=== PATIENT | male | born 1960 | race Caucasian/White ===

== ENCOUNTER 2018-08-06 13:57 | Emergency (ER) | payer SELFPAY ==
[~2018-08-06] VITALS: Ht 175.3 cm; Wt 129.3 kg
--- OUTSIDE RECORDS SUMMARY | 2018-08-06 14:01 | XMS REPORT | Continuity of Care Document ---
Author Author [employer] Address Unknown Phone Unavailable Care Team Providers Care Senior Publications Specialist Name Role Phone [employer] Information [employer] Unavailable Unavailable Problems Problem Status Onset Date Classification Date Reported Comments Source Hordeolum externum of left upper eyelid 06/17/2018 06/19/2018 [facility] Cellulitis of left upper eyelid 06/17/2018 06/19/2018 [facility] LEFT EYE PAIN/ SINUS PAIN Active 06/17/2018 [facility] Cutaneous abscess of neck 05/17/2017 08/15/2017 [facility] Cellulitis 05/09/2017 08/15/2017 [facility] Hyperglycemia 05/09/2017 08/15/2017 [facility] Abscess 05/09/2017 08/15/2017 [facility] ABSCESS Active 05/06/2017 [facility] Cellulitis of neck 08/15/2017 [facility] Type 2 diabetes mellitus with hyperglycemia 08/15/2017 [facility] Underdosing of insulin and oral hypoglycemic [antidiabetic] drugs, initial encounter 08/15/2017 [facility] Patient's intentional underdosing of medication regimen for other reason 08/15/2017 [facility] intermediate teacher use of oral hypoglycemic drugs 08/15/2017 [facility] Diabetes Resolved Problem 06/19/2018 [facility] Medications Medication Details Route Status Patient Instructions Ordering Provider Order Date Source Cephalexin 500 MG Oral Capsule [Keflex] 500 mg=1 cap, PO, TID, X 7 day, # 21 cap, 0 Refill(s) Active 06/17/2018 [facility] Sulfamethoxazole 800 MG / Trimethoprim 160 MG Oral Tablet [Bactrim] 1 tab, PO, BID, X 7 day, # 14 tab, 0 Refill(s) Active 06/17/2018 [facility] Fluconazole 150 MG Oral Tablet [Diflucan] 150 mg=1 tab, PO, ONCE, # 1 tab, 0 Refill(s) Active 05/09/2017 [facility] Cephalexin 500 MG Oral Capsule [Keflex] 500 mg=1 cap, PO, QID, X 7 day, # 28 cap, 0 Refill(s) No Longer Active 05/09/2017 [facility] Sulfamethoxazole 800 MG / Trimethoprim 160 MG Oral Tablet [Bactrim] 1 tab, PO, BID, X 7 day, # 14 tab, 0 Refill(s) No Longer Active 05/09/2017 [facility] Motrin 800 mg, Route: PO, Drug form: TAB, ONCE, Dosing Weight 136.364, kg, Priority: STAT, Start date: 05/09/17 16:41:00 CDT, Stop date: 05/09/17 16:41:00 CDT Inactive 05/09/2017 [facility] Lidocaine Hydrochloride 10 MG/ML Injectable Solution 1 mL, Route: SUB-Q, Drug Form: INJ, Dosing Weight 136.364, kg, ONCE, STAT, Start date: 05/09/17 15:09:00 CDT, Stop date: 05/09/17 15:09:00 CDTNotes: Preservative free. (Same as: Xylocaine MPF) Inactive 05/09/2017 [facility] NS (Bolus) IV 1,000 mL, 1,000 ml/hr, Infuse Over: 1 hr, Route: IV, 1,000, Drug form: INJ, ONCE, Priority: STAT, Dosing Weight 136.364 kg, Start date: 05/09/17 14:48:00 CDT, Stop date: 05/09/17 14:48:00 CDT Inactive 05/09/2017 [facility] Allergies, Adverse Reactions, Alerts Substance Category Reaction Severity Reaction type Status Date Reported Comments Source Levaquin Assertion Drug allergy Active [facility] Immunizations No Data Provided for This Section Results Order Name Results Value Reference Range Date Interpretation Comments Source Culture: Urine No Growth 05/09/2017 [facility] URINE AND STOOL UA Bili Negative *NA* (05/09/17 4:33 PM) Negative 05/09/2017 [facility] URINE AND STOOL UA Nitrite Negative (05/09/17 4:33 PM) Negative 05/09/2017 [facility] URINE AND STOOL UA Urobilinogen 0.2 0.1 - 1.0 05/09/2017 [facility] URINE AND STOOL UA Blood Negative (05/09/17 4:33 PM) Negative 05/09/2017 [facility] URINE AND STOOL UA Leuk Est Negative (05/09/17 4:33 PM) Negative 05/09/2017 [facility] URINE AND STOOL UA Color Yellow *NA* (05/09/17 4:33 PM) Yellow 05/09/2017 [facility] URINE AND STOOL UA Turbidity Clear (05/09/17 4:33 PM) Clear 05/09/2017 [facility] URINE AND STOOL UA Spec Grav 1.010 <=1.030 05/09/2017 [facility] URINE AND STOOL UA Protein Negative mg/dL Negative mg/dL 05/09/2017 [facility] URINE AND STOOL UA Glucose >=1000 mg/dL Negative mg/dL 05/09/2017 [facility] URINE AND STOOL UA pH 6.0 5.0 - 8.0 05/09/2017 [facility] URINE AND STOOL UA Ketones Negative mg/dL Negative mg/dL 05/09/2017 [facility] URINE AND STOOL UA Trichomonas Occasional /HPF None Seen /HPF 05/09/2017 [facility] URINE AND STOOL UA Bacteria Occasional /HPF None Seen /HPF 05/09/2017 [facility] URINE AND STOOL UA RBC 0-2 /HPF 0 - 2 05/09/2017 [facility] URINE AND STOOL UA WBC 21-50 /HPF None Seen /HPF 05/09/2017 [facility] URINE AND STOOL UA Sq Epi Occasional /LPF Few /LPF 05/09/2017 [facility] CHEM PANEL ALT 26 0 - 65 05/09/2017 [facility] CHEM PANEL A/G Ratio 0.6 0.7 - 1.6 05/09/2017 [facility] CHEM PANEL Globulin 5.1 2.7 - 4.2 05/09/2017 [facility] CHEM PANEL Total Protein 8.4 6.4 - 8.4 05/09/2017 [facility] CHEM PANEL eGFR 62 05/09/2017 Result Comment: The eGFR is calculated using the CKD-EPI formula. In most young, healthy individuals the eGFR will be >90 mL/min/1.73m2. The eGFR declines with age. An eGFR of 60-89 may be normal in some populations, particularly the elderly, for whom the CKD-EPI formula has not been extensively validated. Use of the eGFR is not recommended in the following populations:

Individuals with unstable creatinine concentrations, including patients and those with serious co-morbid conditions.

Patients with extremes in muscle mass or diet.

The data above are obtained from the National Kidney Disease Education Program (NKDEP) which additionally recommends that when the eGFR is used in patients with extremes of body mass index for purposes of drug dosing, the eGFR should be multiplied by the estimated BMI. [facility] CHEM PANEL Bili Total 0.3 0.2 - 1.3 05/09/2017 [facility] CHEM PANEL Alk Phos 121 39 - 136 05/09/2017 [facility] CHEM PANEL AST 18 0 - 37 05/09/2017 [facility] CHEM PANEL Creatinine Lvl 1.29 0.50 - 1.40 05/09/2017 [facility] CHEM PANEL BUN 19 7 - 22 05/09/2017 [facility] CHEM PANEL CO2 28 24 - 32 05/09/2017 [facility] CHEM PANEL Chloride Lvl 99 95 - 109 05/09/2017 [facility] CHEM PANEL Potassium Lvl 4.1 3.5 - 5.1 05/09/2017 [facility] CHEM PANEL Sodium Lvl 134 135 - 145 05/09/2017 [facility] CHEM PANEL B/C Ratio 15 6 - 25 05/09/2017 [facility] CHEM PANEL Albumin Lvl 3.3 3.5 - 5.0 05/09/2017 [facility] CHEM PANEL Calcium Lvl 8.8 8.5 - 10.5 05/09/2017 [facility] CHEM PANEL AGAP 11.1 10.0 - 20.0 05/09/2017 [facility] CHEM PANEL Glucose Lvl 331 70 - 99 05/09/2017 [facility] HEMATOLOGY Hct 47.9 42.0 - 54.0 05/09/2017 [facility] HEMATOLOGY WBC 14.2 3.7 - 10.4 05/09/2017 [facility] RBC 5.29 4.70 - 6.10 05/09/2017 [facility] Hgb 16.5 14.0 - 18.0 05/09/2017 [facility] HEMATOLOGY MPV 7.3 7.4 - 10.4 05/09/2017 [facility] HEMATOLOGY RDW 13.1 11.5 - 14.5 05/09/2017 [facility] HEMATOLOGY Platelet 418 133 - 450 05/09/2017 [facility] MCH 31.3 27.0 - 31.0 05/09/2017 [facility] MCHC 34.5 32.0 - 36.0 05/09/2017 [facility] MCV 90.6 80.0 - 94.0 05/09/2017 [facility] HEMATOLOGY Eosinophils 1.7 0.0 - 4.0 05/09/2017 [facility] Monocytes # 0.6 0.0 - 0.8 05/09/2017 [facility] HEMATOLOGY Lymphocytes # 3.5 1.0 - 5.5 05/09/2017 [facility] HEMATOLOGY Segs-Bands # 9.9 1.5 - 8.1 05/09/2017 [facility] HEMATOLOGY Basophils 0.1 0.0 - 1.0 05/09/2017 [facility] HEMATOLOGY Eosinophils # 0.2 0.0 - 0.5 05/09/2017 [facility] HEMATOLOGY Monocytes 4.5 2.0 - 12.0 05/09/2017 [facility] HEMATOLOGY Lymphocytes 25.0 20.0 - 40.0 05/09/2017 [facility] HEMATOLOGY Segs 68.7 45.0 - 75.0 05/09/2017 [facility] Pathology Reports No Data Provided for This Section Diagnostic Reports No Data Provided for This Section Consultation Notes No Data Provided for This Section Discharge Summaries No Data Provided for This Section History and Physicals No Data Provided for This Section Vital Signs Vital Sign Value Date Comments Source Heart Rate 89 06/17/2018 [facility] Weight 136.364 06/17/2018 [facility] Height 175.26 cm 06/17/2018 [facility] BMI Calculated 44.4 06/17/2018 [facility] Temperature Oral (F) 97.9 F 06/17/2018 [facility] Respitory Rate 18 06/17/2018 [facility] Heart Rate 107 06/17/2018 [facility] Systolic (mm Hg) 137 06/17/2018 [facility] Diastolic (mm Hg) 83 06/17/2018 [facility] Systolic (mm Hg) 142 05/09/2017 [facility] Diastolic (mm Hg) 84 05/09/2017 [facility] Temperature Oral (F) 98.4 F 05/09/2017 [facility] Heart Rate 88 05/09/2017 [facility] Respitory Rate 18 05/09/2017 [facility] Height 175.26 cm 05/09/2017 [facility] Respitory Rate 18 05/09/2017 [facility] Heart Rate 90 05/09/2017 [facility] Temperature Oral (F) 98.3 F 05/09/2017 [facility] Weight 136.364 05/09/2017 [facility] BMI Calculated 44.4 05/09/2017 [facility] Systolic (mm Hg) 163 05/09/2017 [facility] Diastolic (mm Hg) 99 05/09/2017 [facility] Encounters Location Location Details Encounter Type Encounter Number Reason For Visit Attending Provider ADM Date DC Date Status Source [facility] Emergency [id number] Guillermo Barbara 05/09/2017 05/09/2017 [facility] Emergency [id number] Allan Whitney IV 06/17/2018 06/17/2018 JOSE Christian Procedures Procedure Code Date Perfomer Comments Source Cholecystectomy [id number] [place] Assessment and Plan No Data Provided for This Section Plan of Care No Data Provided for This Section Social History Social History Date Source Social History TypeResponse Smoking Status Never smoker; Exposure to Tobacco Smoke None; Cigarette Smoking Last 365 Days No; Reg Smoking Cessation Counseling No entered on: 06/17/18 06/17/2018 [facility] Family History No Data Provided for This Section Advance Directives No Data Provided for This Section Functional Status No Data Provided for This Section
--- OUTSIDE RECORDS SUMMARY | 2018-08-06 14:01 | XMS REPORT ---
Author Author [facility] Address Unknown Phone Unavailable Care Team Providers Care Embedded Software Programmer Name Role Phone Unavailable Unavailable Problems This patient has no known problems. Allergies, Adverse Reactions, Alerts This patient has no known allergies or adverse reactions. Medications This patient has no known medications. Encounters Start Date/Time End Date/Time Encounter Type Admission Type Attending Clinicians Care Facility Care Department Encounter ID 2018-06-17 09:36:00 2018-06-17 09:36:00 Emergency [id number]
--- OUTSIDE RECORDS SUMMARY | 2018-08-06 14:01 | XMS REPORT | Summary of Care ---
Author Author [facility] Organization [facility] Address Unknown Phone Unavailable Encounter JABARI Storm(ANIBAL) [id number] Date(s): 06/17/18 - 06/17/18 [facility] [address], [place], [place] [address]- [phone] Encounter Diagnosis Hordeolum externum of left upper eyelid (Discharge Diagnosis) - 06/17/18 Cellulitis of left upper eyelid (Discharge Diagnosis) - 06/17/18 Discharge Disposition: Home or Self Care Attending Physician: Allan Hills DO Vital Signs Most recent to 1 2 oldest [Reference Range]: Height 175.26 cm (06/17/18 9:42 AM) Temperature Oral 97.9 DegF [96.4-99.1 DegF] (06/17/18 9:42 AM) Blood Pressure 137/83 mmHg [90-140/60-90 mmHg] (06/17/18 9:42 AM) Respiratory Rate 18 BRMIN [14-20 BRMIN] (06/17/18 9:42 AM) Peripheral Pulse 89 bpm 107 bpm Rate [60-100 bpm] (06/17/18 10:13 AM) *HI* (06/17/18 9:42 AM) Weight 136.364 kg (06/17/18 9:42 AM) Body Mass Index 44.4 m2 (06/17/18 9:42 AM) Problem List Condition Effective Dates Status Health Status Informant Diabetes(Confirmed) Resolved Allergies, Adverse Reactions, Alerts Substance Reaction Severity Status Levaquin Active Medications Bactrim DS 800 mg- 160 mg oral tablet 1 tab, PO, BID, X 7 day, # 14 tab, 0 Refill(s) Start Date: 06/17/18 Stop Date: 06/24/18 Status: Ordered Keflex 500 mg oral capsule 500 mg=1 cap, PO, TID, X 7 day, # 21 cap, 0 Refill(s) Start Date: 06/17/18 Stop Date: 06/24/18 Status: Ordered Results No data available for this section Immunizations No data available for this section Procedures Procedure Date Related Diagnosis Body Site Status Cholecystectomy Completed Social History Social History Type Response Smoking Status Never smoker; Exposure to Tobacco Smoke None; Cigarette Smoking Last 365 Days No; Reg Smoking Cessation Counseling No entered on: 06/17/18 Assessment and Plan No data available for this section
[2018-08-06 15:43] LABS: BILIRUBIN,URINE NEGATIVE (NEGATIVE); CLARITY,URINE CLEAR (CLEAR); COLOR,URINE YELLOW (YELLOW); KETONES,URINE NEGATIVE (NEGATIVE); LEUKOCYTE ESTERASE ,URINE TRACE (NEGATIVE); NITRITE,URINE NEGATIVE (NEGATIVE); PROTEIN,URINE DIPSTICK NEGATIVE (NEGATIVE); URINE UROBILINOGEN 0.2 mg/dL (0.2 - 1)
[2018-08-06 16:04] LABS: BACTERIA,URINE RARE /HPF; EPITHELIAL CELLS,URINE FEW /LPF
[2018-08-06 16:11] LABS: BASOPHILS # (AUTO) 0.1 (0.0-0.1); BASOPHILS % 0.4 % (0.0-1.0); EOSINOPHILS # (AUTO) 0.3 (0.0-0.4); EOSINOPHILS % 1.6 % (0.0-6.0); HEMATOCRIT 44.2 % (38.2-49.6); HEMOGLOBIN 15.2 g/dL (14.0-18.0); LYMPHOCYTES # (AUTO) 4.8 (1.0-3.2); LYMPHOCYTES % 30.3 % (18.0-39.1); MEAN CORPUSCULAR HEMOGLOBIN 31.8 pg (28-32); MEAN CORPUSCULAR HGB CONC 34.4 g/dL (31-35); MEAN CORPUSCULAR VOLUME 92.5 fL (81-99); MONOCYTES # (AUTO) 1.1 (0.2-0.8); MONOCYTES % 6.7 % (4.4-11.3); NEUTROPHILS # (AUTO) 9.6 (2.1-6.9); NEUTROPHILS % 60.4 % (38.7-80.0); PLATELET COUNT 341 x10e3/uL (140-360); RED BLOOD COUNT 4.78 x10e6/uL (4.3-5.7); RED CELL DISTRIBUTION WIDTH 13.7 % (11.7-14.4)
[2018-08-06 16:21] LABS: INR 0.89; PROTHROMBIN TIME 12.5 seconds (11.9-14.5)
[2018-08-06 16:22] LABS: PARTIAL THROMBOPLASTIN TIME 31.4 seconds (23.8-35.5)
[2018-08-06 16:29] LABS: ALANINE AMINOTRANSFERASE 22 IU/L (0-55); ALBUMIN 3.5 g/dL (3.5-5.0); ALBUMIN/GLOBULIN RATIO 0.9 (0.8-2.0); ALKALINE PHOSPHATASE 68 IU/L (40-150); ANION GAP 18.4 mmol/L (8-16); BLOOD UREA NITROGEN 16 mg/dL (7-26); BUN/CREATININE RATIO 19 (6-25); CALCIUM 9.5 mg/dL (8.4-10.2); CARBON DIOXIDE 21 mmol/L (22-29); CHLORIDE 105 mmol/L (98-107); CREATINE KINASE 100 IU/L (30-200); CREATININE, SERUM 0.83 mg/dL (0.72-1.25); EST GLOMERULAR FILTRATION RATE > 60 ML/MIN (60-); GLUCOSE 130 mg/dL (74-118); POTASSIUM 4.4 mmol/L (3.5-5.1); SODIUM 140 mmol/L (136-145)
--- NOTE | 2018-08-06 16:36 | Diagnostic Imaging Report ---
EXAMINATION: CHEST 2 VIEWS INDICATION: Chest pain COMPARISON: None FINDINGS: TUBES and LINES: None. LUNGS: Lungs are well inflated. No focal consolidation or pulmonary edema. PLEURA: No pleural effusion or pneumothorax. HEART AND MEDIASTINUM: The cardiomediastinal silhouette is unremarkable. BONES AND SOFT TISSUES: No acute fracture or dislocation. Soft tissues are unremarkable. UPPER ABDOMEN: No free air under the diaphragm. IMPRESSION: No focal pneumonia or pulmonary edema. Signed by: Hermelinda Curtis MD on 08/06/2018 4:32 PM
[2018-08-06] MEDS ORDERED: CLINDAMYCIN 600MG / 50ML 50 ML IV ONE (19:30)
[2018-08-06] MEDS ORDERED: CLINDAMYCIN PHOS 600 MG/ 4 ML VIAL IM NR (19:45)
[2018-08-06 20:29] VITALS: BP 155/95
== END 2018-08-06 20:32 | disposition home or self-care (01) ==
LOC: ER 13:57
DX: R07.89 Other chest pain (principal); B37.2 Candidiasis of skin and nail; L03.112 Cellulitis of left axilla; L03.111 Cellulitis of right axilla; E11.9 Type 2 diabetes mellitus without complications; M10.9 Gout, unspecified
CPT/HCPCS: 36415; 71046; 80053; 81001; 82550; 82553; 83880; 84484; 85025; 85610; 85730; 93005; 99283

== ENCOUNTER 2018-11-19 05:36 | Emergency (ER) | payer SELFPAY ==
[~2018-11-19] VITALS: Ht 175.3 cm; Wt 136.1 kg
[2018-11-19] MEDS ORDERED: BACTRIM DS TAB1 EACH PO (06:13)
[2018-11-19 06:32] VITALS: BP 149/81
[2018-11-26] MEDS ORDERED: LOPRESSOR25 MG PO (08:16)
[2018-11-26] MEDS ORDERED: PRAVASTATIN SOD20 MG PO (08:16)
[2018-11-26] MEDS ORDERED: ASPIR 8181 MG PO (08:16)
== END 2018-11-19 06:37 | disposition home or self-care (01) ==
LOC: FSED 05:36
DX: L02.811 Cutaneous abscess of head [any part, except face] (principal); R20.2 Paresthesia of skin; I10 Essential (primary) hypertension; R73.9 Hyperglycemia, unspecified; R94.31 Abnormal electrocardiogram [ECG] [EKG]
CPT/HCPCS: 10060; 93005; 99283

== ENCOUNTER 2018-11-25 17:26 | Observation (INO) | payer SELFPAY ==
[~2018-11-25] VITALS: Ht 175.3 cm; Wt 152.1 kg
[~2018-11-25 17:26] MED LIST: BACTRIM DS TAB1 EACH PO
[2018-11-25] MEDS ORDERED: ASPIRIN 81 MG CHEW TAB PO ONE ×2 (17:30→20:00)
[2018-11-25 18:32] LABS: BASOPHILS # (AUTO) 0.1 (0.0-0.1); BASOPHILS % 0.5 % (0.0-1.0); EOSINOPHILS # (AUTO) 0.3 (0.0-0.4); EOSINOPHILS % 1.9 % (0.0-6.0); HEMATOCRIT 45.7 % (38.2-49.6); HEMOGLOBIN 15.7 g/dL (14.0-18.0); LYMPHOCYTES # (AUTO) 5.5 (1.0-3.2); LYMPHOCYTES % 36.6 % (18.0-39.1); MEAN CORPUSCULAR HEMOGLOBIN 31.8 pg (28-32); MEAN CORPUSCULAR HGB CONC 34.4 g/dL (31-35); MEAN CORPUSCULAR VOLUME 92.5 fL (81-99); MONOCYTES % 6.9 % (4.4-11.3); NEUTROPHILS % 53.3 % (38.7-80.0); PLATELET COUNT 405 x10e3/uL (140-360); RED BLOOD COUNT 4.94 x10e6/uL (4.3-5.7); RED CELL DISTRIBUTION WIDTH 13.6 % (11.7-14.4)
[2018-11-25 18:37] LABS: BILIRUBIN,URINE NEGATIVE (NEGATIVE); CLARITY,URINE CLEAR (CLEAR); COLOR,URINE YELLOW (YELLOW); KETONES,URINE NEGATIVE (NEGATIVE); LEUKOCYTE ESTERASE ,URINE SMALL (NEGATIVE); NITRITE,URINE NEGATIVE (NEGATIVE); PROTEIN,URINE DIPSTICK NEGATIVE (NEGATIVE); URINE UROBILINOGEN 0.2 mg/dL (0.2 - 1)
[2018-11-25 18:45] LABS: INR 0.81; PARTIAL THROMBOPLASTIN TIME 32.2 seconds (23.8-35.5); PROTHROMBIN TIME 11.6 seconds (11.9-14.5)
[2018-11-25 18:53] LABS: ALANINE AMINOTRANSFERASE 23 IU/L (0-55); ALBUMIN 3.4 g/dL (3.5-5.0); ALBUMIN/GLOBULIN RATIO 0.8 (0.8-2.0); ALKALINE PHOSPHATASE 78 IU/L (40-150); ANION GAP 19.3 mmol/L (8-16); BLOOD UREA NITROGEN 18 mg/dL (7-26); BUN/CREATININE RATIO 18 (6-25); CALCIUM 9.7 mg/dL (8.4-10.2); CARBON DIOXIDE 19 mmol/L (22-29); CHLORIDE 105 mmol/L (98-107); CREATINE KINASE 120 IU/L (30-200); EST GLOMERULAR FILTRATION RATE > 60 ML/MIN (60-); GLUCOSE 134 mg/dL (74-118); POTASSIUM 4.3 mmol/L (3.5-5.1); SODIUM 139 mmol/L (136-145)
[2018-11-25 18:54] LABS: BACTERIA,URINE RARE /HPF; EPITHELIAL CELLS,URINE FEW /LPF; RBC,URINE 0-5 /HPF (0-5); WBC,URINE (MAN) 0-5 /HPF (0-5)
--- NOTE | 2018-11-25 19:13 | Diagnostic Imaging Report ---
EXAMINATION: CHEST SINGLE (PORTABLE) INDICATION: Chest pain ^ERMD ORDER ^[id number] ^[id number] ^Y COMPARISON: 08/06/2018 FINDINGS: AP view TUBES and LINES: None. LUNGS: Limited by body habitus. Lungs are well inflated. Mild central peribronchial cuffing. No definite focal consolidation. PLEURA: No pleural effusion or pneumothorax. HEART AND MEDIASTINUM: The cardiomediastinal silhouette is unremarkable. BONES AND SOFT TISSUES: No acute osseous lesion. Soft tissues are unremarkable. UPPER ABDOMEN: No free air under the diaphragm. IMPRESSION: Mild central peribronchial cuffing. No definite focal consolidation. Signed by: Dr. Angel Teague MD on 11/25/2018 7:10 PM
[2018-11-25] MEDS ORDERED: ONDANSETRON HCL INJ 2MG/ML 2ML 2 MG/ML VIAL IV PRN (19:30)
[2018-11-25] MEDS ORDERED: SODIUM CHLORIDE FLUSH 10 ML SYR INJ PRN (19:30)
[2018-11-25 20:45] VITALS: BP 158/97
[2018-11-25 21:12] VITALS: BP 158/97
[2018-11-25] MEDS ORDERED: ACETAMINOPHEN 325 MG TAB PO PRN (23:00)
[2018-11-26] VITALS: BP 130/54
[2018-11-26 03:06] LABS: CREATINE KINASE 131 IU/L (30-200)
[2018-11-26 04:00] VITALS: BP 134/80
[2018-11-26 06:08] LABS: BASOPHILS # (AUTO) 0.1 (0.0-0.1); BASOPHILS % 0.6 % (0.0-1.0); EOSINOPHILS # (AUTO) 0.3 (0.0-0.4); EOSINOPHILS % 2.4 % (0.0-6.0); HEMOGLOBIN 15.1 g/dL (14.0-18.0); LYMPHOCYTES # (AUTO) 4.7 (1.0-3.2); LYMPHOCYTES % 36.8 % (18.0-39.1); MEAN CORPUSCULAR HEMOGLOBIN 31.5 pg (28-32); MEAN CORPUSCULAR HGB CONC 33.6 g/dL (31-35); MEAN CORPUSCULAR VOLUME 93.8 fL (81-99); MONOCYTES % 7.8 % (4.4-11.3); NEUTROPHILS # (AUTO) 6.6 (2.1-6.9); NEUTROPHILS % 51.5 % (38.7-80.0); PLATELET COUNT 371 x10e3/uL (140-360); RED CELL DISTRIBUTION WIDTH 13.6 % (11.7-14.4)
[2018-11-26 06:14] LABS: ANION GAP 17.4 mmol/L (8-16); BLOOD UREA NITROGEN 17 mg/dL (7-26); BUN/CREATININE RATIO 17 (6-25); CALCIUM 9.8 mg/dL (8.4-10.2); CARBON DIOXIDE 20 mmol/L (22-29); CHLORIDE 103 mmol/L (98-107); CREATININE, SERUM 0.99 mg/dL (0.72-1.25); EST GLOMERULAR FILTRATION RATE > 60 ML/MIN (60-); GLUCOSE 197 mg/dL (74-118); POTASSIUM 4.4 mmol/L (3.5-5.1); SODIUM 136 mmol/L (136-145)
--- NOTE | 2018-11-26 07:18 | NUR ---
H&P cc: cp HPI: 58yoM, PCP none, developed right arm tingling for 2 weeks, now left chest discomfort. No sob/dizziness. last stress test 5 yrs ago- pt reports as negative. PMH: DM, gout, Cig use, peripheral edema PSHx: pannus-related, knee arthroscopy, cholecystectomy Allergies; see emr FH/SH; single; 1ppd cigs meds; see MAR ROS; no f/c/s/N/V/D/WEST/vision changes/skin rash/back pain/dizziness v/s; revd PE tired appearing anicteric ns1s2 mod bs soft nt nd no e/t awake; skin dry reyes n. mood labs/meds; revd A/P: Atypical CP Severe obesity BMI 49.5 DM2- hba1c 8.6, LDL --- HTG 718 PLAN Get 3rd troponin Hba1c/lipids ASA Add BB and statin; add gemfibrozil 600 BID. lovenox/pepcid
[2018-11-26] MEDS ORDERED: FAMOTIDINE 20 MG TAB PO SCH (07:30)
--- NOTE | 2018-11-26 07:34 | Diagnostic Imaging Report ---
EXAMINATION: CHEST SINGLE (PORTABLE) INDICATION: ^CP ^[id number] ^[id number] COMPARISON: 11/25/2018 FINDINGS: AP view TUBES and LINES: None. LUNGS: Limited by body habitus. Lungs are well inflated. Mild central vascular congestion. PLEURA: No significant pleural effusion or pneumothorax. HEART AND MEDIASTINUM: The cardiomediastinal silhouette is borderline in size. BONES AND SOFT TISSUES: No acute osseous lesion. Soft tissues are unremarkable. UPPER ABDOMEN: No free air under the diaphragm. IMPRESSION: Borderline cardiomediastinal silhouette and mild central vascular congestion, not significantly changed from prior exam. Signed by: Dr. Angel Taegue MD on 11/26/2018 7:31 AM
[2018-11-26 07:36] VITALS: BP 135/85
[2018-11-26 07:59] LABS: CHOL/HDL RATIO 8.1 (3.9-4.7); CHOLESTEROL 203 MD/DL (0-199); HDL CHOLESTEROL 25 MG/DL (40-60); TRIGLYCERIDES 718 MG/DL (0-149)
[2018-11-26] MEDS ORDERED: LOPRESSOR25 MG PO (08:16)
[2018-11-26] MEDS ORDERED: PRAVASTATIN SOD20 MG PO (08:16)
[2018-11-26] MEDS ORDERED: ASPIR 8181 MG PO (08:16)
[2018-11-26] MEDS ORDERED: ASPIRIN 325 MG TAB EC PO SCH (09:00)
[2018-11-26] MEDS ORDERED: METOPROLOL TARTRATE 25 MG TAB PO SCH (09:00)
[2018-11-26 09:02] VITALS: BP 135/85
--- NOTE | 2018-11-26 09:04 | NUR ---
lab results notified to Dr Musa, he stated patient can go home
[2018-11-26] MEDS ORDERED: GEMFIBROZIL600 MG PO (09:12)
--- NOTE | 2018-11-26 09:25 | NUR ---
patient discharged home, prescription given, IV Canula removed with tip intact, no ss of infiltration . Tele box returned, patient aware about his f/up appointment, denies any pain, no distress noted. Transported via wheelchair to [facility]
[2018-11-26] MEDS ORDERED: ENOXAPARIN SOD INJ 40 MG/0.4 ML SYR SC SCH (17:00)
[2018-11-26] MEDS ORDERED: ATORVASTATIN 20 MG TAB PO SCH (21:00)
--- NOTE | 2018-11-27 07:07 | NUR ---
D/C summary Principal Dx: Atypical CP Severe obesity BMI 49.5 HTG 718 SEcondary Dx: DM2- hba1c 8.6, LDL --- PLAN Get 3rd troponin Hba1c/lipids ASA Add BB and statin; add gemfibrozil 600 BID. lovenox/pepcid d/c home f/u 3-5 days stable d/c>35mins Alexander Musa MD, PhD.
== END 2018-11-26 09:30 | disposition home or self-care (01) ==
LOC: ER 17:26 → ERHOLD 19:22 → IMCU 20:41
PROVIDERS: ADMIT Internal Medicine; ATTEND Internal Medicine
DX: R07.89 Other chest pain (principal); E66.01 Morbid (severe) obesity due to excess calories; Z68.42 Body mass index [BMI] 45.0-49.9, adult; E11.9 Type 2 diabetes mellitus without complications
CPT/HCPCS: 36415; 71045 ×2; 80048; 80053; 80061; 81001; 82550 ×2; 82553 ×2; 82948; 83036; 83880; 84484 ×2; 85025 ×2; 85610; 85730; 93005; 99284; G0378 ×2

== ENCOUNTER 2018-12-15 07:31 | Emergency (ER) | payer SELFPAY ==
[~2018-12-15] VITALS: Ht 175.3 cm; Wt 152.0 kg
[~2018-12-15 07:31] MED LIST changes: +ASPIR 8181 MG PO; +GEMFIBROZIL600 MG PO; +LOPRESSOR25 MG PO; +PRAVASTATIN SOD20 MG PO
--- NOTE | 2018-12-15 07:57 | NUR ---
PT STATES HE WILL GO HIS CLINIC TO SEE HIS DR INSTEAD.
== END 2018-12-15 07:58 | disposition left against medical advice (07) ==
LOC: FSED 07:31
DX: L73.9 Follicular disorder, unspecified (principal)

== ENCOUNTER 2021-10-20 02:35 | Emergency (ER) | payer OTHER ==
[~2021-10-20] VITALS: Ht 175.3 cm; Wt 147.4 kg
[2021-10-20] MEDS ORDERED: KETOROLAC TROMETHAMINE 60 MG/2 ML VIAL IM ONE (02:45)
[2021-10-20] MEDS ORDERED: KETOROLAC TROMETHAMINE 60 MG/2 ML VIAL ONE (02:55)
[2021-10-20] MEDS ORDERED: KETOROLAC TROME10 MG PO (03:50)
[2021-10-20 03:51] VITALS: BP 145/87
== END 2021-10-20 03:54 | disposition home or self-care (01) ==
LOC: ER 02:41
DX: M79.621 Pain in right upper arm (principal); W23.0XXA Caught, crushed, jammed, or pinched between moving objects, initial encounter; Y92.89 Other specified places as the place of occurrence of the external cause; I10 Essential (primary) hypertension; E11.9 Type 2 diabetes mellitus without complications; M10.9 Gout, unspecified; E66.01 Morbid (severe) obesity due to excess calories
CPT/HCPCS: 73060; 73090; 99283; J1885

== ENCOUNTER 2021-12-11 16:53 | Emergency (ER) | payer SELFPAY ==
[~2021-12-11] VITALS: Ht 175.3 cm; Wt 147.4 kg
[~2021-12-11 16:53] MED LIST changes: +KETOROLAC TROME10 MG PO
[2021-12-11] MEDS ORDERED: KETOROLAC TROMETHAMINE 60 MG/2 ML VIAL IM ONE (17:45)
[2021-12-11] MEDS ORDERED: CYCLOBENZAPRINE5 MG PO (17:52)
[2021-12-11] MEDS ORDERED: NAPROSYN500 MG PO (17:52)
== END 2021-12-11 19:19 | disposition home or self-care (01) ==
LOC: ER 17:08
DX: M79.601 Pain in right arm (principal); M62.838 Other muscle spasm; I10 Essential (primary) hypertension; E11.8 Type 2 diabetes mellitus with unspecified complications; M10.9 Gout, unspecified; E66.01 Morbid (severe) obesity due to excess calories
CPT/HCPCS: 99283; J1885